=== PATIENT | male | born 1970 | race American Indian/Alaskan Native ===

== ENCOUNTER 2021-08-31 16:40 | Emergency (ER) | payer BC, OTHER ==
[~2021-08-31] VITALS: Ht 180.3 cm; Wt 108.9 kg
[~2021-08-31 16:40] MED LIST: HYDROCODON-ACE1 EAC8 PO; LISINOPRIL5 MG PO; METOPROLOL SUCC25 MG PO; NITROSTAT0.4 MG SL
[2021-08-31] MEDS ORDERED: METFORMIN HCL500 MG PO (19:02)
[2021-08-31] MEDS ORDERED: LISINOPRIL5 MG PO (19:02)
== END 2021-08-31 19:36 | disposition home or self-care (01) ==
LOC: ED 16:40
DX: E11.65 Type 2 diabetes mellitus with hyperglycemia (principal); I10 Essential (primary) hypertension; G47.30 Sleep apnea, unspecified
CPT/HCPCS: 80048; 83036; 85025; 99284; J7030

== ENCOUNTER 2022-03-08 06:45 | Day surgery (SDC) | payer BC, OTHER ==
[~2022-03-08] VITALS: Ht 180.3 cm; Wt 113.6 kg
[~2022-03-08 06:45] MED LIST changes: +EC MATRIXX TAB1 EACH PO; +GLUCOTROL XL5 MG PO; +LIPITOR20 MG; +METFORMIN HCL500 MG PO
--- NOTE | 2022-03-08 09:19 | NUR ---
03/08/22 0919 Ana Minaya 0915 PATIENT ARRIVES TO PACU UNRESPONSIVE TO VERBAL STIMULI. ORAL AIRWAY IN PLACE. RESP EVEN AND UNLABORED, MASK AT 6 LITERS.
--- NOTE | 2022-03-08 10:40 | NUR ---
PT ALERT, ORIENTED AND SUPPORTED BY HIS BUSHRA. SHE BINAT REMAIN FOR DC. PT HAS HAD SCOPES BEFORE, ALL QUESTIONS ASKED ANSWERED. GAVE BLESSING, WILL FOLLOW NEEDED
--- NOTE | 2022-03-08 12:04 | OR ---
[facility] [address], [place] [address] Signed DATE OF OPERATION: 03/08/2022 SURGEON: Benjamín Sandy MD PREOPERATIVE DIAGNOSES: 1. Father with colon cancer in his early 60s. 2. Paternal aunts x2 with colon cancer in their 50s. 3. Paternal uncle with colon cancer in his 50s. 4. Probable personal history of colonic polyps, early 40s (2011). POSTOPERATIVE DIAGNOSES: 1. Minimal to moderate sigmoid diverticulosis. 2. 8 mm and 4 mm polyps x2 at 8 cm (snare). 3. 3 and 5 mm cecal/periappendiceal polyps. 4. 5 mm polyp at 45 cm. 5. 5 mm polyp at 30 cm. PROCEDURE: Colonoscopy, snare polypectomy and hot biopsy. ESTIMATED BLOOD LOSS: None. INDICATIONS: Jaspal is a 52-year-old obese, diabetic gentleman, asked to see me for followup colonoscopy. He explained that his father had been diagnosed with colon cancer in his early 60s and a few years later from the colon cancer. He has two paternal aunts and a paternal uncle who all three had colon cancer in their 50s. Jaspal is pretty certain he had colonic polyps removed in his early 40s around 2011. 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 In addition, we have been coming through the COVID pandemic. It has been difficult to get back for his followup colonoscopies. He said he has no lower GI complaints. He is trying his best to improve his medical compliance, particularly with his diabetes. In addition, he is a very large man with a very round face, heavy chest and abdomen. He has sleep apnea as well. He also uses marijuana and alcohol. In that regard, he really needs monitored anesthesia care which worked out well today. In the office, I gave him a pamphlet on colonoscopy. We had reviewed the nature of that test along with the risk including, but not limited to gas bloating, crampy abdominal pain, bleeding, perforation requiring surgery, and missed diagnosis. We also reviewed his need to return every five years for repeat colonoscopies. He had expressed understanding and wished to proceed. Electronically Signed By: BENJAMÍN SANDY MD 03/08/22 1204 PATIENT NAME: JASPAL WILDE OPERATIVE REPORT DATE OF : 72 REPORT #: [id number] PHYSICIAN: BENJAMÍN SANDY MD PCP: [facility] REPORT IS CONFIDENTIAL AND NOT TO BE RELEASED WITHOUT AUTHORIZATION [facility] [address], [place] [address] Signed DESCRIPTION OF PROCEDURE: Jaspal was taken into our endoscopy suite and placed in the left lateral decubitus position. He was given monitored anesthesia care with propofol per our nurse waist fitter. A digital rectal exam was performed and this was unremarkable. He has good sphincter tone. Prostate slightly indurated. The adult colonoscope had been introduced and advanced all around into the cecum under direct visualization of the camera. It took just a little bit of abdominal compression in order to advance the scope into the cecum itself. His prep was quite excellent. We could easily see the appendiceal orifice and the ileocecal valve. The above-mentioned polyps were removed with the help of hot biopsy forceps. We did use the snare for 8 mm polyp at 8 cm in the rectum. Upon retroflexion of the scope, there was no additional pathology noted above the anal canal. After this, the gas was suctioned out and the colonoscope removed. Jaspal tolerated the procedure quite well. RECOMMENDATIONS: I will see Jaspal back in my office in 7 to 14 days to review his results. He will need to stay on the 5-year rotation. Benjamín Sandy MD ALB/MODL /[id number] cc: Benjamín Sandy MD [facility] Copies: BENJAMÍN SANDY MD ~ Electronically Signed By: BENJAMÍN SANDY MD 03/08/22 1204 PATIENT NAME: JASPAL WILDE OPERATIVE REPORT DATE OF : 72 REPORT #: [id number] PHYSICIAN: BENJAMÍN SANDY MD PCP: [facility] REPORT IS CONFIDENTIAL AND NOT TO BE RELEASED WITHOUT AUTHORIZATION
--- NOTE | 2022-03-11 14:48 | PATH ---
[facility] [address] [place], [place] [address] Signed SPECIMEN(S): A COLON POLYP AT 8 CM SPECIMEN(S): B CECUM POLYP SPECIMEN(S): C POLYP AT 45 CM SPECIMEN(S): D POLYP AT 30 CM SPECIMEN SOURCE: A. COLON POLYP AT 8 CM B. CECUM POLYP C. POLYP AT 45 CM D. POLYP AT 30 CM CLINICAL HISTORY: Colonoscopy. Postop Dx: Diverticulosis, polyps. FINAL PATHOLOGIC DIAGNOSIS: A. Colon, polyp at 8 cm, polypectomy: - Fragments of tubular adenoma. - Negative for high-grade dysplasia or malignancy. B. Colon, cecum, polyp, polypectomy: - Fragments of tubular adenoma. - Negative for high-grade dysplasia or malignancy. C. Colon, polyp at 45 cm, polypectomy: - Tubular adenoma. - Negative for high-grade dysplasia or malignancy. D. Colon, polyp at 30 cm, polypectomy: - Tubular adenoma. - Negative for high-grade dysplasia or malignancy. NAL:cml:C2NR MICROSCOPIC EXAMINATION: Histologic sections of all submitted blocks are examined by light microscopy. These findings, together with the gross examination, support the pathologic diagnosis. GROSS DESCRIPTION: Four specimens are received in four containers, labeled "SJ." A. The specimen, labeled "SJ, colon polyp at 8 cm," is received in formalin and consists of six vasquez soft tissue fragments that measure 0.1-0.7 cm in greatest dimension. The biggest tissue fragment is inked and trisected. The specimen is entirely submitted in cassette (A1). B. The specimen, labeled "SJ, cecum polyp," is received in formalin and PATIENT NAME: RON WILDE PATHOLOGY DATE OF : 72 REPORT #: [id number] PHYSICIAN: CARMINE METZ PCP: [facility] REPORT IS CONFIDENTIAL AND NOT TO BE RELEASED WITHOUT AUTHORIZATION [facility] [address] [place], [place] [address] Signed consists of five vasquez soft tissue fragments that measure 0.1 cm in greatest dimension. The specimen is entirely submitted in cassette (B1). C. The specimen, labeled "SJ, colon polyp at 45 cm," is received in formalin and consists of one vasquez soft tissue fragment that measures 0.1 cm in greatest dimension. The specimen is entirely submitted in cassette (C1). D. The specimen, labeled "SJ, colon polyp at 30 cm," is received in formalin and consists of two vasquez soft tissue fragments that measure 0.1-0.2 cm in greatest dimension. The specimen is entirely submitted in cassette (D1). JS (under the direct supervision of a pathologist) The Gross Description was prepared using a voice recognition system. The report was reviewed for accuracy; however, sound-alike word errors, addition and/or deletions may occur. If there is any question about this report, please contact Client Services. PERFORMING LABORATORY: The technical component was performed by [facility], [address] [place] [id number] (CLIA# [id number]).[facility], [address] [address] (CLIA# [id number]). Diagnostician: Leann Arboleda MD Pathologist Electronically Signed 03/11/2022 Copies: ~ PATIENT NAME: RON WILDE PATHOLOGY DATE OF : 72 REPORT #: [id number] PHYSICIAN: CARMINE PATHOLOGY PCP: [facility] REPORT IS CONFIDENTIAL AND NOT TO BE RELEASED WITHOUT AUTHORIZATION
== END 2022-03-08 09:50 | disposition home or self-care (01) ==
LOC: DS 06:45 → OPS 06:45 → DS 07:30 → OPS 07:30
PROVIDERS: ATTEND Colon & Rectal Surgery
PROC: 0DBE8ZX Excision of Large Intestine, Via Natural or Artificial Opening Endoscopic, Diagnostic (ICD-10-PCS; 2022-03-08)
PROC: 0DBP8ZX Excision of Rectum, Via Natural or Artificial Opening Endoscopic, Diagnostic (ICD-10-PCS; principal; 2022-03-08 07:30)
DX: Z12.11 Encounter for screening for malignant neoplasm of colon (principal); D12.8 Benign neoplasm of rectum; D12.0 Benign neoplasm of cecum; E66.9 Obesity, unspecified; E11.9 Type 2 diabetes mellitus without complications; Z80.0 Family history of malignant neoplasm of digestive organs; K57.30 Diverticulosis of large intestine without perforation or abscess without bleeding; I10 Essential (primary) hypertension; E78.5 Hyperlipidemia, unspecified; G47.30 Sleep apnea, unspecified; Z68.35 Body mass index [BMI] 35.0-35.9, adult
CPT/HCPCS: J2001; J2704; J7121

== ENCOUNTER 2024-09-29 11:54 | Emergency (ER) | payer OTHER, BC ==
[~2024-09-29] VITALS: Ht 180.3 cm; Wt 115.2 kg
[2024-09-29] MEDS ORDERED: FREESTYLE LIBR1 EAC2 MC (14:22)
[2024-09-29] MEDS ORDERED: OZEMPIC0.25 MG/02 SQ (14:22)
[2024-09-29 16:03] VITALS: BP 147/108
== END 2024-09-29 16:03 | disposition home or self-care (01) ==
LOC: ED 11:54
DX: S09.8XXA Other specified injuries of head, initial encounter (principal); W20.8XXA Other cause of strike by thrown, projected or falling object, initial encounter; I10 Essential (primary) hypertension; E11.9 Type 2 diabetes mellitus without complications; G47.30 Sleep apnea, unspecified; Z79.899 Other long term (current) drug therapy
CPT/HCPCS: 70450; 72125; 99283-25